=== PATIENT | female | born 1980 | race Caucasian/White ===

== ENCOUNTER 2017-06-10 05:18 | Emergency (ER) | payer OTHER ==
[~2017-06-10] VITALS: Ht 162.6 cm; Wt 68.7 kg
[2017-06-10 05:21] VITALS: BP 133/82
[2017-06-10] MEDS ORDERED: IBUPROFEN800 MG PO (06:28)
[2017-06-10] MEDS ORDERED: NORCO 5/3251 TABLET PO (06:28)
== END 2017-06-10 06:51 | disposition home or self-care (01) ==
LOC: EME 05:18
DX: S29.012A Strain of muscle and tendon of back wall of thorax, initial encounter (principal); X50.0XXA Overexertion from strenuous movement or load, initial encounter
CPT/HCPCS: 99281; 99283